=== PATIENT | male | born 1995 | race Caucasian/White ===

== ENCOUNTER 2020-03-02 22:31 | Emergency (ER) | payer SELFPAY ==
[~2020-03-02] VITALS: Ht 180.3 cm; Wt 104.3 kg
[2020-03-02 22:40] VITALS: Ht 180.3 cm; Wt 104.3 kg
[2020-03-03 00:45] LABS: BASOPHIL % 0 % (0-2); PLATELET COUNT 265 x10^3mcL (130-400); RED CELL DISTRIBUTION WIDTH 12.9 % (11.5-14.5)
[2020-03-03 00:49] LABS: CALCIUM 9.5 mg/dL (8.5-10.1); CARBON DIOXIDE 30.1 mmol/L (21-32); CHLORIDE SERUM 102 mmol/L (98-107); GFR1 > 60 mL/min; GLUCOSE SERUM 103 mg/dL (74-106); POTASSIUM SERUM 4.6 mmol/L (3.5-5.1); SODIUM SERUM 138 mmol/L (136-145)
[2020-03-03 00:55] LABS: ALBUMIN 4.2 g/dL (3.4-5.0); ALKALINE PHOSPHATASE 132 U/L (46-116); ALT/SGPT 62 U/L (16-63); AST/SGOT 36 U/L (15-37); BILIRUBIN TOTAL 0.81 mg/dL (0.20-1.00); CHOLESTEROL 185 mg/dL (<200); CHOLESTEROL/HDL RATIO 4.4; HDL CHOLESTEROL 42 mg/dL (40-60); LIPASE 136 IU/L (73-393); TRIGLYCERIDES 141 mg/dL (<150)
[2020-03-03 00:56] LABS: TOTAL PROTEIN, SERUM 8.3 g/dL (6.4-8.2)
[2020-03-03 01:19] LABS: T3 TOTAL 2.03 ng/mL
[2020-03-03 01:30] LABS: AMPHETAMINE QUAL UR NONE DETECTED (See below)
[2020-03-03 01:40] LABS: FREE T4 1.13 ng/dL (0.76-1.46)
[2020-03-03 01:52] VITALS: BP 119/80
== END 2020-03-03 01:53 | disposition home or self-care (01) ==
LOC: ED 22:31
PROVIDERS: Specialist
DX: R55 Syncope and collapse (principal)
CPT/HCPCS: 83880; 84439